=== PATIENT | male | born 1950 | race Caucasian/White ===

== ENCOUNTER → 2017-01-07 | Outpatient (CLI) | payer MEDICARE ==
--- NOTE | 2017-01-07 09:12 | KCIC ---
MR CERVICAL SPINE Indication: Right shoulder pain and neck pain COMPARISON: Abdomen Technique: Sagittal T2, sagittal STIR, sagittal T1, and axial gradient echo imaging was obtained of the cervical spine. FINDINGS: There is 2 mm retrolisthesis of C6 on C7 and 1 mm anterolisthesis of C7 on T1. Vertebral body heights are maintained. Craniocervical junction is within normal limits. Visualized soft tissues of the neck are within normal limits. At C2-3 there is left facet arthropathy causing mild left foraminal stenosis. At C3-4 there is moderate right facet arthropathy and uncovertebral hypertrophy causing moderate right foraminal stenosis. Clinically for right C4 radiculopathy. At 4-5 there is 1 mm anterolisthesis. There is bilateral facet arthropathy worse on the right which results in moderate right foraminal stenosis. Correlate for right C5 radiculopathy. At C5-C6 there is bilateral facet arthropathy worse in the left tilting in at least mild left foraminal stenosis. There is a disc osteophyte complex which abuts the undersurface of the cord but does not cause significant mass effect upon it. At C6-C7 there is 2 mm retrolisthesis. There is a left foraminal disc osteophyte complex causing moderate to severe left foraminal stenosis. Correlate for left C7 radiculopathy. Discussed by complex abuts the ventral surface of the cord but does not cause significant mass effect upon it. At C7-T1 there is 1 mm anterolisthesis with bilateral facet arthropathy and left-sided vertebral hypertrophy causing at least moderate left foraminal stenosis. Correlate for left C8 radiculopathy. 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 IMPRESSION: Multilevel degenerative disc and facet disease causing varying degrees of neural foraminal stenosis detailed of each level above. 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 Electronically signed by: Corbin De Los Santos MD (01/07/2017 9:09 AM)
--- NOTE | 2017-01-07 09:29 | KCIC ---
MRI upper extremity right dated 01/07/2017. Comparison made to cervical spine MRI dated same day. CLINICAL INDICATION: Right shoulder and right neck pain. Brachial plexus study. TECHNIQUE: T1 and T2 weighted imaging performed in 3 planes to include the lower neck and upper chest, centered at the right brachial plexus. No contrast admission. FINDINGS: Spondylotic changes of the cervical spine with varying degrees of multifocal foraminal narrowing, better described on cervical spine MRI performed same day. Cervical nerve roots and trunks are symmetric. No evidence of nerve root avulsion or pseudomeningocele. No perineural edema or fluid collection. No nerve root thickening or asymmetric signal abnormality. Visualized soft tissue structures are otherwise unremarkable. No adenopathy or mass. There is mild edema within the left infraspinatus muscle seen best on the axial sequences. No acute bony abnormality. IMPRESSION: 1. No acute abnormality right brachial plexus. 2. Spondylotic changes of the cervical spine, better described on cervical spine MRI dated same day. 3. Mild edema within the left infraspinatus muscle, nonspecific. Consider myositis or strain injury. Electronically signed by: Ike Tiwari MD (01/07/2017 9:25 AM)
== END | disposition home or self-care (01) ==
LOC: KCIC MRI 07:37
PROVIDERS: ATTEND Orthopaedic Surgery
DX: M48.02 Spinal stenosis, cervical region (principal); G62.9 Polyneuropathy, unspecified; M54.2 Cervicalgia; Q06.4 Hydromyelia; M43.12 Spondylolisthesis, cervical region
CPT/HCPCS: 72141; 73218